=== PATIENT | male | born 1940 | race Caucasian/White ===

== ENCOUNTER → 2016-11-26 | Outpatient (CLI) | payer MEDICARE, OTHER, SELFPAY | PROVIDERS: Visit Provider Internal Medicine Adolescent Medicine | DX: Z51.89 Encounter for other specified aftercare (principal); Z48.01 Encounter for change or removal of surgical wound dressing | CPT/HCPCS: G0463 ==

== ENCOUNTER → 2017-08-31 08:10 | Outpatient (CLI) | payer MEDICARE, SELFPAY ==
[2017-08-31 09:03] LABS: Hemoglobin A1C 6.1 % (0.0-7.0)
[2017-08-31 09:12] LABS: Basophils % 0.7 % (0.1-2.0); Eosinophils # 0.3 K/mm3 (0.0-0.4); Eosinophils % 5.3 % (0.1-12.0); Hematocrit 42.4 % (42.0-52.0); Hemoglobin 14.3 g/dL (14.1-18.0); Lymphocytes # 1.7 K/mm3 (0.7-4.5); Lymphocytes % 27.6 K/mm3 (10-50); Mean Corpuscular HGB Conc 33.7 g/dL (31.8-35.4); Mean Corpuscular Hemoglobin 31.7 pg (27.0-31.2); Mean Corpuscular Volume 94.1 fl (80-94); Mean Platelet Volume 7.9 fl (7.4-10.4); Monocytes # 0.4 K/mm3 (0.1-1.0); Monocytes % 7.2 % (1.7-9.3); Neutrophils # 3.5 K/mm3 (1.8-7.8); Neutrophils % 59.2 % (37.0-80.0); Platelet Count 246 K/mm3 (142-424); Red Blood Count 4.51 M/mm3 (4.60-6.20)
[2017-08-31 10:06] LABS: Alanine Aminotransferase 42 U/L (12-78); Albumin Level 4.2 gm/dL (3.4-5.0); Albumin/Globulin Ratio 1.3 (1.1-1.8); Alkaline Phosphatase 74 U/L (46-116); Aspartate Amino Transferase 18 U/L (15-37); Bilirubin,Total 0.7 mg/dL (0.2-1.0); Blood Urea Nitrogen 20 mg/dL (7-18); Calcium 9.3 mg/dL (8.5-10.1); Carbon Dioxide 31 mmol/L (21.0-32.0); Chol/HDL Ratio 3.7 (1-3.5); Cholesterol 116 mg/dL (140-200); Creatinine,Serum 1.29 mg/dL (0.70-1.30); Estimated Glomerular Filt Rate 54 ml/min (>60); Free Thyroxine Index 2.7 ug/dL (5.93-13.13); GFR (African American) 66 ML/MIN (>60); Globulin 3.3 gm/dl (1.3-3.2); Glucose 187 mg/dL (74-106); HDL Cholesterol 31 mg/dL (27-67); LDL Cholesterol 51 mg/dL (0-130); T4 (Thyroxine) 7.6 ug/dl (4.7-13.3); Thyroid Stimulating Hormone 1.77 uIU/ml (0.358-3.740); Total Protein,Serum 7.5 gm/dL (6.4-8.2); Triglycerides 172 mg/dL (30-200); Triiodothryronine (T3) Uptake 35 % (31-39); VLDL Cholesterol 34 mg/dL (0-40)
[2017-08-31 18:12] LABS: Anion Gap 13.4 mEq/L (5-15); Chloride 102 mmol/L (98-107); Potassium 4.4 mmoL/L (3.5-5.1); Sodium 142 mmol/L (136-145)
== END ==
PROVIDERS: PCP Nurse Practitioner Family; Visit Provider Nurse Practitioner Family
DX: E78.5 Hyperlipidemia, unspecified (principal); E11.9 Type 2 diabetes mellitus without complications; I48.91 Unspecified atrial fibrillation
CPT/HCPCS: 36415; 80053; 80061; 83036; 84436; 84443; 84479; 85025

== ENCOUNTER → 2017-09-21 08:53 | Outpatient (CLI) | payer MEDICARE, SELFPAY ==
--- NOTE | 2017-09-21 09:00 | CA_ITS ---
PROCEDURE: 2-D M-mode and color Doppler study INDICATIONS FOR THE TEST: Chest pain COPD Heart Murmur Tobacco Smoking Palpitations Fatigue Syncope Edema HypertensionXDiabetes Mellitus Rheumatic Fever SOBXDOEXObesity HyperlipidemiaX Family History HD Additional History AF, PATIENT INFORMATION HEIGHT: 72 WEIGHT:195 GENDER: Male B/P:117/69 2-D/M-MODE INTERPRETATION: 2-D MEASUREMENTS OBSERVED VALUES IN CMS Right Ventricular Dimension (RVDd) 2.4 Interventricular Septum (Thickness)(IVsd) 1.5 Left Ventricular Internal Dimensions(LVIDd) 4.3 Left Ventricular Posterior Wall (Thickness)(LVPWd) 1.4 Aortic Root 4.1 Aortic Cusp Separation 1.4 Left Atrial Dimensions (LAD) 3.0 2D 1. Left atrium is mildly enlarged, left ventricle is normal size, there is moderate concentric left ventricular hypertrophy, visually estimated ejection fraction approximately 60-65% with no obvious regional wall motion abnormality. 2. The right atrium and right ventricle are relatively normal size and function. 3. The aortic valve is thickened and calcified with restriction the leaflet mobility. 4. The mitral valve has mitral calcification, mitral valve leaflets are minimally thickened, there is mild systolic anterior motion of the mitral valve leaflets seen. 5. The tricuspid valve is minimally thickened. 6. The pulmonic valve is poorly visualized. 7. No significant pericardial effusion noted. DOPPLER INTERROGATION: 1. The maximum aortic out flow velocity recorded study is 3.3 m/s, resulting in a mean gradient across valve of 24 mmHg, this represents at least moderate aortic stenosis, there is no aortic insufficiency. 2. The mitral inflow velocity within normal range, there is no mitral stenosis, there is mild mitral regurgitation, grade 1 diastolic dysfunction seen without tissue Doppler evidence of raised left atrial pressure. 3. There is mild tricuspid regurgitation noted, tricuspid and jet velocity insufficient for calculation of the right ventricular systolic pressure. CONCLUSION: 1. Mildly enlarged left atrium, normal left ventricular size, moderate concentric left ventricular hypertrophy, visually estimated ejection fraction of 60-65% with no obvious regional wall motion abnormality, grade 1 diastolic dysfunction seen with tissue Doppler evidence of raised left atrial pressure. 2. Thickened and calcified aortic valve, mean gradient across valve of 34 mmHg, represents moderate aortic stenosis, there is no significant aortic insufficiency seen. 3. Mild mitral and tricuspid regurgitation 4. No significant peric
--- NOTE | 2017-09-21 09:55 | CI_ITS ---
Cerebrovascular Exam Indications: 780.4 Dizziness and giddiness. 433.10 Occlusion/stenosis of carotid artery without cerebral infarction. IMPRESSIONS 1. The bilateral vertebral arteries are patent with normal antegrade flow. 2. Study suggests 20-49% stenosis involving the right internal carotid artery and the left internal carotid artery. No change from the study of 26-Nov-2016. History: Risk factors: Hypertension. Carotid duplex study. Complete study and Doppler flow study including spectral analysis, color and leo scale imaging. Height: Height: 182.9cm. Height: 72in. Weight: Weight: 88.5kg. Weight: 194.6lb. Body mass index: BMI: 26.4kg/m^2. Body surface area: BSA: 2.13m^2. Location: Vascular laboratory. Patient status: Outpatient. Tables: Arterial flow: + +--------+--------+ Location V sys V ed + +--------+--------+ Right CCA - proximal 66.8cm/s 16.5cm/s + +--------+--------+ Right CCA - distal 102cm/s 24.4cm/s + +--------+--------+ Right ECA 127cm/s -------- + +--------+--------+ Right ICA - proximal 78.2cm/s 16.7cm/s + +--------+--------+ Right ICA - mid 68.4cm/s 24.4cm/s + +--------+--------+ Right ICA - distal 105cm/s 33.8cm/s + +--------+--------+ Right vertebral 42.4cm/s -------- + +--------+--------+ Left CCA - proximal 94.3cm/s 23.6cm/s + +--------+--------+ Left CCA - distal 120cm/s 28.3cm/s + +--------+--------+ Left ECA 115cm/s -------- + +--------+--------+ Left ICA - proximal 102cm/s 31.4cm/s + +--------+--------+ Left ICA - mid 136cm/s 35.4cm/s + +--------+--------+ Left ICA - distal 102cm/s 33cm/s + +--------+--------+ Left vertebral 29.9cm/s -------- + +--------+--------+ Velocity ratios: + + + + + + Right, V sys Right, V ed Left, V sys Left, V ed + + + + + + Max ICA/dist CCA 1.03 1.39 1.13 1.25 + + + + + + (Report amended ) Electronically signed by: Sharad Calderon [id number]
== END ==
PROVIDERS: PCP Nurse Practitioner Family; Visit Provider Internal Medicine
DX: R06.00 Dyspnea, unspecified (principal); I35.0 Nonrheumatic aortic (valve) stenosis; R42 Dizziness and giddiness; R01.1 Cardiac murmur, unspecified; I48.0 Paroxysmal atrial fibrillation
CPT/HCPCS: 93306; 93880

== ENCOUNTER → 2017-10-26 06:44 | Outpatient (CLI) | payer MEDICARE, SELFPAY ==
--- NOTE | 2017-10-26 06:50 | NM_ITS ---
CARDIOLITE SPECT MYOCARDIAL PERFUSION SCAN, REST AND STRESS: EXERCISE STRESS [facility] - [facility] REVIEW QGS EF AND WALL MOTION EVALUATION: QPS - PERFUSION EVALUATION HISTORY: ABNORMAL EKG,SOB, PAROXYSMAL AFIB DOSE: 9.63 mCi technetium 99m mibi intravenously at rest followed by 31.8 mCi technetium 99m mibi following the intravenous ministration of 0.4 mg of Lexiscan. Resting blood pressure is 155/82. Stress blood pressure 125/71. FINDINGS: Ejection fraction is calculated to be 67. Uniform myocardial activity with both stress and rest gated images calculated ejection fraction of 67% with normal wall motion IMPRESSION: No scintigraphic evidence of Lexiscan-induced myocardial ischemia normal ejection fraction normal wall motion
--- NOTE | 2017-10-26 06:50 | CT_ITS ---
CT heart w calcium score INDICATION: ITS.REASON: dyspnea ORDERING PHYSICIAN: Brendon Stack MD PATIENT AGE: 77 years COMPARISON: TECHNIQUE: Axial images are obtained without contrast. Sagittal and coronal reformatted images are reviewed as well. All CT scans at the facility use one or more dose reduction, viz: automated exposure control; ma/kV adjustment per patient size (including targeted exams where dose is matched to indication; i.e. head); or iterative reconstruction technique. FINDINGS: Coronary artery calcium score is 104. Moderate plaque burden with high cardiovascular disease risk. Other findings: Calcification of the aortic valve. IMPRESSION: Moderate plaque burden with high cardiovascular disease risk Aortic valve calcification which may be seen with aortic valve disease
--- NOTE | 2017-10-26 08:37 | HMH.ITSHM ---
zorelto bisoprolol hctz lovastatin digoxin ravaraxban
== END ==
PROVIDERS: PCP Nurse Practitioner Family; Visit Provider Internal Medicine Cardiovascular Disease
DX: R06.02 Shortness of breath (principal); R42 Dizziness and giddiness; I48.0 Paroxysmal atrial fibrillation; I35.0 Nonrheumatic aortic (valve) stenosis
CPT/HCPCS: 75571; 78452; 93017; A9502; J2785

== ENCOUNTER 2017-12-23 12:59 | Observation (INO) ==
[2017-12-23 14:19] LABS: Albumin Level 3.1 gm/dL (3.4-5.0); Albumin/Globulin Ratio 0.8 (1.1-1.8); Anion Gap 11.4 mEq/L (5-15); Basophils % 0.4 % (0.1-2.0); Bilirubin,Total 0.5 mg/dL (0.2-1.0); Calcium 8.9 mg/dL (8.5-10.1); Eosinophils # 0.2 K/mm3 (0.0-0.4); Eosinophils % 1.8 % (0.1-12.0); Globulin 3.8 gm/dl (1.3-3.2); Hematocrit 33.8 % (42.0-52.0); Hemoglobin 10.2 g/dL (14.1-18.0); Lymphocytes # 1.7 K/mm3 (0.7-4.5); Lymphocytes % 21.2 K/mm3 (10-50); Mean Corpuscular HGB Conc 30.1 g/dL (31.8-35.4); Mean Corpuscular Hemoglobin 29.1 pg (27.0-31.2); Mean Corpuscular Volume 96.5 fl (80-94); Mean Platelet Volume 6.9 fl (7.4-10.4); Monocytes # 0.6 K/mm3 (0.1-1.0); Monocytes % 7.4 % (1.7-9.3); Neutrophils # 5.6 K/mm3 (1.8-7.8); Neutrophils % 69.2 % (37.0-80.0); Platelet Count 561 K/mm3 (142-424); Potassium 4.4 mmoL/L (3.5-5.1); Red Cell Distribution Width 14.6 % (11.5-17.5); Total Protein,Serum 6.9 gm/dL (6.4-8.2); White Blood Count 8.1 K/mm3 (4.8-10.8)
--- NOTE | 2017-12-23 14:24 | Pharmacy Consult Notes ---
[facility] Pharmacy VTE Monitoring - Patient Demographics Admission date: 12/23/17 Report Date: 12/23/17 Time: 14:24 Allergies/Adverse Reactions: Patient Allergies No Known Allergies Allergy (Unverified 11/20/17 09:08) Height: 1.83 m Weight: 82.129 kg - VTE Risk Labs: VTE Related Lab Results BUN 18 mg/dL (7-18) 12/23/17 13:54 Creatinine 1.11 mg/dL (0.70-1.30) 12/23/17 13:54 Estimated Creat Clear 66 mL/min (0-300) 12/23/17 13:54 Was VTE Risk Assessment Performed: Yes VTE Score: 2 VTE Risk Level: Very Low Risk - Prophylaxis VTE Prophylaxis Ordered?: Yes Types of VTE Prophylaxis: TEDS Knee High Location of Applied Device: Bilateral Lower Extremeties
--- NOTE | 2017-12-23 17:53 | History & Physical Report ---
*Admission Date: 12/23/17 *Chief complaint: Fatigue/weakness *History of present illness: 77-year-old white male who underwent aortic valve replacement surgery at [facility] earlier this month, was released from the hospital a week and half ago and came to see me today for postoperative check. He was found to be tired, weak, irregular pulse rate in the low 100s, with blood pressure readings in the low 100s. Dehydrated and very tired appearing and pale. Admitted to hospital for further evaluation. [facility] History I have reviewed the patient's past medical history: Yes Medical History: Reports:: Atrial Fibrillation, Coronary Artery Disease, Heart Murmur, Hyperlipidemia, Hypertension Denies:: Cancer, Diabetes Mellitus Type 1, Diabetes Mellitus Type 2, Internal Pacemaker, MRSA, Seizures Laterality Cases: Bilateral: Tonsillectomy Other Surgeries: Yes: Cardiac Catheterization, Cholecystectomy, Other Valve Replacement, Other. No: Pacemaker Amputation: No Fractures: No - *Social History Educational Level: Completed College Smoking Status: Never smoker Alcohol Intake: never Alcohol Intake Frequency:: other Occupational Status: retired Housing: house Household Members: spouse - Psychiatric History Expresses thoughts of harming self/others: None Suicide Plan Description: No Plan *Family Hx:: Coronary Artery Disease, Heart Attack Review of Systems - Constitutional Reports body ache(s), Reports fatigue, Denies chills, Denies daytime sleepiness - Eyes Denies blind spots, Denies blurry vision - ENT Denies abnormal hearing - *Cardiovascular Denies shortness of breath when lying down, Denies rapid, pounding, or irregular heartbeat - *Respiratory Denies change in phlegm color, Denies chest congestion - *Gastrointestinal Denies abdominal pain, Denies belching, Denies bloating - *Genitourinary Denies difficulty urinating - *Musculoskeletal Denies abnormal walking - Endocrine Denies cold intolerance, Denies excessive sweating, Denies rapid, pounding, or irregular heartbeat Meds Home Medications Medication Instructions Recorded Confirmed Type lovastatin 40 mg tablet 40 mg PO HS 09/17/17 12/23/17 History Apixaban [Eliquis] 5 mg PO BID 12/23/17 12/23/17 History Aspirin [Aspirin 81mg chewable 81 mg PO DAILY 12/23/17 12/23/17 History tab] Docusate Sodium 100 mg PO DAILY 12/23/17 12/23/17 History Furosemide [Furosemide 40MG tAB] 40 mg PO Q48H 12/23/17 12/23/17 History Hydrocod/Acet 5/325 mg [[place] 1 tab PO Q4HP PRN 12/23/17 12/23/17 History 5/325mg tablet] Potassium Chloride [Klor-Con 10mEq 10 meq PO Q48H 12/23/17 12/23/17 History tab] Allergies Allergy/AdvReac Type Severity Reaction Status Date / Time No Known Allergies Allergy Unverified 11/20/17 09:08 Exam Vital signs and Labs for Last 24 Hours: Temp Pulse Resp BP Pulse Ox 97.8 F 80 18 108/66 100 12/23/17 15:45 12/23/17 16:00 12/23/17 15:45 12/23/17 15:45 12/23/17 15:45 Laboratory Results - last 24 hr 12/23/17 13:54: WBC 8.1, RBC 3.50 L, Hgb 10.2 L, Hct 33.8 L, MCV 96.5 H, MCH 29.1, MCHC 30.1 L, RDW 14.6, Plt Count 561 H, MPV 6.9 L, Neut % (Auto) 69.2, Lymph % (Auto) 21.2, [place] % (Auto) 7.4, Eos % (Auto) 1.8, Baso % (Auto) 0.4, Neut # (Auto) 5.6, Lymph # (Auto) 1.7, [place] # (Auto) 0.6, Eos # (Auto) 0.2, Baso # (Auto) 0.0 12/23/17 13:54: Sodium 135 L, Potassium 4.4, Chloride 102, Carbon Dioxide 26, Anion Gap 11.4, BUN 18, Creatinine 1.11, Estimated Creat Clear 66, Estimated GFR 64, Est GFR ( Amer) 78, Glucose 149 H, Calcium 8.9, Magnesium 2.2, Total Bilirubin 0.5, AST 46 H, ALT 65, Alkaline Phosphatase 138 H, Total Protein 6.9, Albumin 3.1 L, Globulin 3.8 H, Albumin/Globulin Ratio 0.8 L 12/23/17 13:54: Troponin I 0.09 H I & O for Last 24 hours: Intake & Output 12/21/17 12/22/17 12/23/17 12/24/17 11:59 11:59 11:59 11:59 Intake Total 240 / 240 Balance 240 / 240 Weight 181 lb 1 oz Narrative: Patient is tired, pale appearing, dry oral mucosa. Heart rate irregular. Sternotomy scar is well-healing. Abdomen soft, lungs are clear. Poor skin turgor. Dry skin. H&P: Result - Labs Labs: Short CBC 12/23/17 Range/Units 13:54 WBC 8.1 (4.8-10.8) K/mm3 Hgb 10.2 L (14.1-18.0) g/dL Hct 33.8 L (42.0-52.0) % Plt Count 561 H (142-424) K/mm3 BMP 12/23/17 13:54 Sodium 135 L Potassium 4.4 Chloride 102 Carbon Dioxide 26 BUN 18 Creatinine 1.11 Glucose 149 H Calcium 8.9 Cardiac Enzymes 12/23/17 Range/Units 13:54 Troponin I 0.09 H (0.00-0.06) ng/ml Liver Function 12/23/17 Range/Units 13:54 Total Bilirubin 0.5 (0.2-1.0) mg/dL AST 46 H (15-37) U/L ALT 65 (12-78) U/L Alkaline Phosphatase 138 H (46-116) U/L Albumin 3.1 L (3.4-5.0) gm/dL Assessment and Plan (1) Status post aortic valve repair Current visit: Yes Status: Acute Category: Surgical Code(s): Z98.890 - Other specified postprocedural states (2) Dehydration Current visit: Yes Status: Acute Category: Medical Code(s): E86.0 - Dehydration (3) PAF (paroxysmal atrial fibrillation) Current visit: No Status: Acute Category: Medical Code(s): I48.0 - Paroxysmal atrial fibrillation (4) Aortic valve stenosis Current visit: No Status: Chronic Qualifiers: Category: Medical Code(s): I35.0 - Nonrheumatic aortic (valve) stenosis Plan will be to admit patient for observation for IV fluids. Check labs as noted above. Patient is in chronic atrial fibrillation now postoperatively. Cardiology has plans for cardioversion but currently on anticoagulation therapy.
--- NOTE | 2017-12-24 07:27 | Discharge Summary ---
General - General Admission date:: 12/23/17 Discharge date: 12/24/17 HPI HPI: 77-year-old white male who underwent aortic valve replacement surgery at [facility] earlier this month, was released from the hospital a week and half ago and came to see me today for postoperative check. He was found to be tired, weak, irregular pulse rate in the low 100s, with blood pressure readings in the low 100s. Dehydrated and very tired appearing and pale. Admitted to hospital for further evaluation. Hospital Course Hospital Course: Patient was admitted, found to be uncontrolled atrial fibrillation as previously noted. His labs, fortunately, did not look significant in regards to metabolic or hematologic abnormalities. He was given normal saline overnight at 150 an hour and did well with this, and felt much better this morning. His blood pressure was slightly improved. He was able to sit up, eat breast, and felt much better in regards to weakness. Plan will be to discharge home today with medications except will ask patient to hold his Lasix until he sees cardiology because of his hypotension in the office. He will follow-up with cardiology early next week. Objective Vital signs: Temp Pulse Resp BP Pulse Ox 98.4 F 79 18 116/60 99 12/24/17 04:05 12/24/17 04:05 12/24/17 04:05 12/24/17 04:05 12/24/17 04:05 Narrative: Patient on the side of the bed. Pleasant. Mouth is moist this morning. Heart rate irregular but rate controlled, no edema. Lungs are clear, good air expansion. Appears much more energetic than he did yesterday. Results Labs on day of discharge: Labs from last 24 hours 12/23/17 12/23/17 12/23/17 13:54 13:54 13:54 WBC 8.1 RBC 3.50 L Hgb 10.2 L Hct 33.8 L MCV 96.5 H MCH 29.1 MCHC 30.1 L RDW 14.6 Plt Count 561 H MPV 6.9 L Neut % (Auto) 69.2 Lymph % (Auto) 21.2 [place] % (Auto) 7.4 Eos % (Auto) 1.8 Baso % (Auto) 0.4 Neut # (Auto) 5.6 Lymph # (Auto) 1.7 [place] # (Auto) 0.6 Eos # (Auto) 0.2 Baso # (Auto) 0.0 Sodium 135 L Potassium 4.4 Chloride 102 Carbon Dioxide 26 Anion Gap 11.4 BUN 18 Creatinine 1.11 Estimated Creat Clear 66 Estimated GFR 64 Est GFR ( Amer) 78 Glucose 149 H Calcium 8.9 Magnesium 2.2 Total Bilirubin 0.5 AST 46 H ALT 65 Alkaline Phosphatase 138 H Troponin I 0.09 H Total Protein 6.9 Albumin 3.1 L Globulin 3.8 H Albumin/Globulin Ratio 0.8 L DS: Diagnosis - Discharge Diagnosis (1) Status post aortic valve repair Status: Acute (2) Dehydration Status: Acute (3) PAF (paroxysmal atrial fibrillation) Status: Acute (4) Aortic valve stenosis Status: Chronic Discharge Plan - Patient Discharge Instructions ACTIVITY: Continue current activity DIET: continue same diet - Follow up Plan Follow up with: Aren Fernando MD [Primary Care Provider] - 2 weeks Disposition: Home, Self-Intermediate Medications: Home Medications Medication Instructions Recorded Confirmed Type lovastatin 40 mg tablet 40 mg PO HS 09/17/17 12/23/17 History Apixaban [Eliquis] 5 mg PO BID 12/23/17 12/23/17 History Aspirin [Aspirin 81mg chewable 81 mg PO DAILY 12/23/17 12/23/17 History tab] Docusate Sodium 100 mg PO DAILY 12/23/17 12/23/17 History Furosemide [Furosemide 40MG tAB] 40 mg PO Q48H 12/23/17 12/23/17 History Hydrocod/Acet 5/325 mg [[place] 1 tab PO Q4HP PRN 12/23/17 12/23/17 History 5/325mg tablet] Potassium Chloride [Klor-Con 10mEq 10 meq PO Q48H 12/23/17 12/23/17 History tab] Prescriptions/Medication Reconciliation: Continue lovastatin 40 mg tablet 40 mg PO HS Potassium Chloride [Klor-Con 10mEq tab] 10 meq PO Q48H Docusate Sodium 100 mg PO DAILY Apixaban [Eliquis] 5 mg PO BID Hydrocod/Acet 5/325 mg [[place] 5/325mg tablet] 1 tab PO Q4HP PRN PRN Reason: pain Aspirin [Aspirin 81mg chewable tab] 81 mg PO DAILY Discontinued Furosemide [Furosemide 40MG tAB] 40 mg PO Q48H
[2017-12-24 07:31] VITALS: BP 107/61
== END 2017-12-24 09:30 | disposition home or self-care (01) ==
LOC: 2ND
PROVIDERS: ADMIT Internal Medicine Adolescent Medicine; ATTEND Internal Medicine Adolescent Medicine

== ENCOUNTER → 2018-01-07 13:16 | Outpatient (CLI) | payer MEDICARE, SELFPAY | PROVIDERS: PCP Internal Medicine Adolescent Medicine; Visit Provider Internal Medicine | DX: I20.8 Other forms of angina pectoris (principal); R42 Dizziness and giddiness; R06.02 Shortness of breath | CPT/HCPCS: 93225 ==

== ENCOUNTER 2018-01-12 09:26 | Outpatient (RCR) | payer MEDICARE, SELFPAY | END 2018-04-23 15:28 | disposition home or self-care (01) | LOC: PT 09:26 | PROVIDERS: Visit Provider Thoracic Surgery (Cardiothoracic Vascular Surgery) | DX: Z98.890 Other specified postprocedural states (principal); Z95.2 Presence of prosthetic heart valve | CPT/HCPCS: 93798 ==

== ENCOUNTER → 2018-02-19 09:55 | Outpatient (CLI) | payer MEDICARE, SELFPAY ==
--- NOTE | 2018-02-19 09:57 | XR_ITS ---
XR chest 2V HISTORY: ITS.REASON: amiodarone therapy ORDERING PHYSICIAN: Brendon Stack MD PATIENT AGE: 77 years COMPARISON: 12/23/2017 FINDINGS: Prior median sternotomy with aortic valve replacement. There has been prior left atrial appendage ligation. The heart size is normal. The lungs are clear. Previously noted consolidation in the left lung base has improved. Mild degenerative change thoracic spine. IMPRESSION: 1. Postsurgical changes as described above. 2. Resolved left lower lobe consolidation. 3. No convincing evidence of amiodarone lung toxicity
== END ==
PROVIDERS: PCP Internal Medicine Adolescent Medicine; Visit Provider Internal Medicine Cardiovascular Disease
DX: R06.02 Shortness of breath (principal); Z79.899 Other long term (current) drug therapy
CPT/HCPCS: 71046

== ENCOUNTER → 2018-06-04 11:22 | Outpatient (CLI) | payer MEDICARE, SELFPAY | PROVIDERS: PCP Internal Medicine Adolescent Medicine; Visit Provider Internal Medicine Cardiovascular Disease | DX: I48.0 Paroxysmal atrial fibrillation (principal); R06.00 Dyspnea, unspecified; R42 Dizziness and giddiness; Z95.3 Presence of xenogenic heart valve; Z98.890 Other specified postprocedural states | CPT/HCPCS: 93225 ==

== ENCOUNTER → 2018-07-28 10:28 | Outpatient (CLI) | payer MEDICARE, SELFPAY ==
[2018-07-28 11:06] LABS: Basophils % 0.7 % (0.1-2.0); Eosinophils # 0.2 K/mm3 (0.0-0.4); Eosinophils % 4.5 % (0.1-12.0); Hematocrit 40.5 % (42.0-52.0); Hemoglobin 13.6 g/dL (14.1-18.0); Lymphocytes # 1.2 K/mm3 (0.7-4.5); Lymphocytes % 23.6 % (10-50); Mean Corpuscular HGB Conc 33.5 g/dL (31.8-35.4); Mean Corpuscular Hemoglobin 32.3 pg (27.0-31.2); Mean Corpuscular Volume 96.3 fl (80-94); Mean Platelet Volume 7.3 fl (7.4-10.4); Monocytes # 0.3 K/mm3 (0.1-1.0); Monocytes % 6.2 % (1.7-9.3); Neutrophils # 3.4 K/mm3 (1.8-7.8); Platelet Count 204 K/mm3 (142-424); Red Blood Count 4.21 M/mm3 (4.60-6.20); Red Cell Distribution Width 14.2 % (11.5-17.5); White Blood Count 5.3 K/mm3 (4.8-10.8)
[2018-07-28 12:28] LABS: Alanine Aminotransferase 30 U/L (12-78); Albumin Level 4.1 gm/dL (3.4-5.0); Albumin/Globulin Ratio 1.4 (1.1-1.8); Alkaline Phosphatase 70 U/L (46-116); Anion Gap 12.6 mEq/L (5-15); Aspartate Amino Transferase 18 U/L (15-37); Bilirubin,Total 0.8 mg/dL (0.2-1.0); Blood Urea Nitrogen 19 mg/dL (7-18); Calcium 9.2 mg/dL (8.5-10.1); Carbon Dioxide 28 mmol/L (21.0-32.0); Chloride 102 mmol/L (98-107); Creatinine,Serum 1.43 mg/dL (0.70-1.30); Estimated Glomerular Filt Rate 48 ml/min (>60); GFR (African American) 58 ML/MIN (>60); Glucose 125 mg/dL (74-106); Potassium 4.6 mmoL/L (3.5-5.1); Sodium 138 mmol/L (136-145); Total Protein,Serum 7.1 gm/dL (6.4-8.2)
[2018-07-29 13:41] LABS: CEA 2.2 ng/mL (0.0-4.7)
== END ==
PROVIDERS: Visit Provider Internal Medicine Adolescent Medicine
DX: I48.91 Unspecified atrial fibrillation (principal); R19.5 Other fecal abnormalities; K92.1 Melena
CPT/HCPCS: 36415; 80053; 82378; 85025

== ENCOUNTER → 2018-10-28 10:14 | Outpatient (CLI) | payer MEDICARE, SELFPAY ==
[2018-10-28 11:37] LABS: Anion Gap 12.7 mEq/L (5-15); Blood Urea Nitrogen 20 mg/dL (7-18); Calcium 9.3 mg/dL (8.5-10.1); Carbon Dioxide 29 mmol/L (21.0-32.0); Chloride 105 mmol/L (98-107); Creatinine,Serum 1.16 mg/dL (0.70-1.30); Estimated Glomerular Filt Rate 61 ml/min (>60); GFR (African American) 74 ML/MIN (>60); Glucose 110 mg/dL (74-106); Potassium 4.7 mmoL/L (3.5-5.1); Sodium 142 mmol/L (136-145)
== END ==
PROVIDERS: Visit Provider Internal Medicine Cardiovascular Disease
DX: I35.0 Nonrheumatic aortic (valve) stenosis (principal); I35.1 Nonrheumatic aortic (valve) insufficiency; I48.0 Paroxysmal atrial fibrillation; R00.2 Palpitations; R06.00 Dyspnea, unspecified; R06.02 Shortness of breath; R42 Dizziness and giddiness; Z01.810 Encounter for preprocedural cardiovascular examination; Z95.3 Presence of xenogenic heart valve
CPT/HCPCS: 36415; 80048; 83880; 93270

== ENCOUNTER → 2018-11-04 14:29 | Outpatient (CLI) | payer MEDICARE, SELFPAY ==
--- NOTE | 2018-11-04 14:30 | CA_ITS ---
PROCEDURE: 2-D M-mode and color Doppler study INDICATIONS FOR THE TEST: Chest pain COPD Heart Murmur+ Tobacco Smoking Palpitations+ Fatigue Syncope Edema Hypertension+Diabetes Mellitus Rheumatic Fever SOB+YUSUF+Obesity Hyperlipidemia+ Family History HD Additional History DIZZINESS, PAF, CAD, ADN EKG, AV REPLACED 12/2017 TDS PATIENT INFORMATION HEIGHT: 72 WEIGHT:202 GENDER: Male B/P:146/79 2-D/M-MODE INTERPRETATION: 2-D MEASUREMENTS OBSERVED VALUES IN CMS Right Ventricular Dimension (RVDd) 2.7 Interventricular Septum (Thickness)(IVsd) 0.9 Left Ventricular Internal Dimensions(LVIDd) 5.4 Left Ventricular Posterior Wall (Thickness)(LVPWd) 0.8 Aortic Root 2.8 Aortic Cusp Separation 1.4 Left Atrial Dimensions (LAD) 4.9 2D 1. Left atrium is mildly enlarged, left ventricle is normal size, mild concentric left ventricular hypertrophy, visually estimated ejection fraction 55% with no regional wall motion abnormality. 2. The right atrium and right ventricle are normal size and contractility. 3. There is mild prosthetic valve noted in the aortic position, the valve is well seated. 4. The mitral valve has mitral calcification, leaflets are minimally thickened and calcified. 5. The tricuspid valve is grossly normal. 6. The pulmonic valve is poorly visualized 7. No significant pericardial effusion noted. DOPPLER INTERROGATION: 1. The maximum aortic out flow velocity across the prosthetic valve is 2.1 m/s, resulting in a mean gradient across valve of 9 mmHg, which is within physiological range for this type of valve, there is trace aortic insufficiency. 2. The mitral inflow velocities within normal range, there is no mitral stenosis, there is mild mitral regurgitation, diastolic parameters are inconclusive. 3. Mild tricuspid regurgitation, tricuspid regurgitation jet velocity is inadequate for calculation of the right ventricular systolic pressure. Inferior vena cava is normal size with normal respiratory collapse. CONCLUSION: 1. Mildly enlarged left atrium, normal left ventricular size, mild concentric left ventricular hypertrophy, visually estimated ejection fraction 55% with no regional wall motion abnormality, diastolic parameters are inconclusive. 2. Bio prosthetic valve in the aortic position without significant aortic obstruction, trace aortic insufficiency seen. 3. Mild mitral and tricuspid regurgitation 4. No significant pericardial effusion noted.
== END ==
PROVIDERS: PCP Internal Medicine Adolescent Medicine; Visit Provider Internal Medicine Cardiovascular Disease
DX: I35.0 Nonrheumatic aortic (valve) stenosis (principal); I35.1 Nonrheumatic aortic (valve) insufficiency; I48.0 Paroxysmal atrial fibrillation; R00.2 Palpitations; R06.02 Shortness of breath; R42 Dizziness and giddiness; Z01.810 Encounter for preprocedural cardiovascular examination; Z95.3 Presence of xenogenic heart valve
CPT/HCPCS: 93306

== ENCOUNTER → 2018-11-26 07:20 | Outpatient (CLI) | payer MEDICARE, SELFPAY ==
[2018-11-26 08:21] LABS: Anion Gap 15.3 mEq/L (5-15); Blood Urea Nitrogen 17 mg/dL (7-18); Calcium 9.1 mg/dL (8.5-10.1); Carbon Dioxide 25 mmol/L (21.0-32.0); Chloride 104 mmol/L (98-107); Creatinine,Serum 1.27 mg/dL (0.70-1.30); Estimated Glomerular Filt Rate 55 ml/min (>60); GFR (African American) 67 ML/MIN (>60); Glucose 162 mg/dL (74-106); Potassium 4.3 mmoL/L (3.5-5.1); Sodium 140 mmol/L (136-145)
== END ==
PROVIDERS: Visit Provider Internal Medicine Cardiovascular Disease
DX: I48.0 Paroxysmal atrial fibrillation (principal); R06.09 Other forms of dyspnea; R42 Dizziness and giddiness; Z95.3 Presence of xenogenic heart valve; Z98.890 Other specified postprocedural states
CPT/HCPCS: 36415; 80048; 83880